=== PATIENT | female | born 1950 | race Caucasian/White ===

== ENCOUNTER 2019-03-09 13:49 | Inpatient (IN) ==
[2019-03-09] MEDS ORDERED: Isovue-370 500 ML BOTTLE IVP ONE (14:01)
[2019-03-09 14:37] LABS: Hematocrit 34.9 % (35.3-44.9); Hemoglobin 11.8 g/dL (11.5-15.4); Mean Corpuscular HGB Conc 33.8 g/dL (31.6-35.5); Mean Corpuscular Hemoglobin 32.1 pg (28.0-33.3); Mean Corpuscular Volume 94.8 fL (83.0-100.0); Mean Platelet Volume 11.3 fL (9.4-12.4); Platelet Count 143 K/mcL (140-400); Red Blood Count 3.68 M/mcL (3.82-4.97); Red Cell Distribution Width 13.8 % (11.5-14.5); White Blood Count 5.4 K/mcL (4.3-11.1)
[2019-03-09 14:46] LABS: INR 1.2; Prothrombin Time 13.4 Seconds (9.4-12.1)
[2019-03-09 14:49] LABS: Activated Partial Thrombo Time 28.2 Seconds (26.0-36.0)
[2019-03-09 14:55] LABS: BUN/Creatinine Ratio 26 (6-26); Blood Urea Nitrogen 35 mg/dL (8-23); Calcium 8.6 mg/dL (8.6-10.3); Carbon Dioxide 25 mEq/L (23-29); Chloride 102 mEq/L (98-107); Glucose 186 mg/dL (70-105); Osmolality,Calculated 291 (280-300); Potassium 4.4 mEq/L (3.5-5.1); Sodium 134 mEq/L (136-145); eGFR For African Americans 47 (> 60); eGFR For Non-African Americans 39 (> 60)
[2019-03-09 14:56] LABS: Troponin I < 0.03 ng/mL (< 0.04)
--- NOTE | 2019-03-09 15:08 | Emergency Department Note ---
Disposition Clinical Impression: Aphasia Disposition: Admitted As Inpatient Condition: Fair Time of Disposition: 15:31 Neuro HPI - General Chief Complaint: ED Neuro Symptoms/Deficit Stated Complaint: neuro sx Time Seen by Provider: 03/09/19 13:53 Source: patient Mode of arrival: ambulatory Limitations: no limitations Nursing Notes Reviewed: Yes Vital Signs Reviewed: Yes - History of Present Illness HPI Narrative: 68-year-old female presented to the emergency department complaining of a facial. said that at 1345 they were at [employer] getting gas when he asked her questions she was unable to answer back. Said this was exactly when it occurred. Said that she does have history of strokes last stroke was a TIA in September. She is on Eloquis secondary atrial fibrillation. She has no other deficits otherwise. Said that she was acting normal otherwise today. Patient otherwise has no other complaints at this time. Although it is difficult to give further history she is completely aphasic at this time. Mostly history came from who is at bedside. - Related Data Home Medications: Home Medications Medication Instructions Recorded Confirmed Apixaban [Eliquis] 5 mg PO BID 10/06/17 03/09/19 DULoxetine [Cymbalta] 30 mg PO DAILY 10/06/17 11/09/17 Ondansetron ODT [Zofran ODT] 4 mg SL Q12HR PRN 10/06/17 11/09/17 Propafenone HCl [Rythmol Sr] 225 mg PO BID 10/06/17 11/09/17 ALPRAZolam [Xanax 0.5 MG Tablet] 0.5 mg PO Q8H PRN 11/09/17 03/09/19 Acetaminophen [Extra Strength 500 mg PO Q4H PRN 11/09/17 03/09/19 Non-Aspirin] Previous Rx's Medication Instructions Recorded Clopidogrel [Plavix] 75 mg PO DAILY tablet 10/12/17 Digoxin [Lanoxin] 0.125 mg PO DAILY tablet 10/25/17 Hydrocodone/Acetaminophen 0.5 each PO Q6H PRN 14 Days #28 10/25/17 [Hydrocodone-Acetamin 7.5-300] tablet Methyl Salicylate/Menth/Camph 113 gm TP BID 365 Days cream..g. 10/25/17 [Bengay Ultra Strength Cream] Lactobacillus [Culturelle] 1 each PO BID 3 Days cap.sprink 11/12/17 levoFLOXacin [Levaquin] 500 mg PO DAILY #3 tablet 11/12/17 Allergies/Adverse Reactions: Allergies Allergy/AdvReac Type Severity Reaction Status Date / Time aspirin AdvReac See Verified 10/06/17 11:51 Comments Limitations: ROS unobtainable due to patients medical condition Past Medical History - Past Medical History Attestation: Yes The following information was validated with the patient. Source: patient Medical history: Reports: arthritis, atrial fibrillation, GERD, hyperlipidemia, hypertension, TIA, other Surgical history: Reports: cholecystectomy, pacemaker Psychiatric history: Reports: depression - Social History Smoking Status: Never smoker Smokeless Tobacco Status: No Alcohol use: Reports: none Drug use: Reports: unknown Physical Exam - General Limitations: no limitations General appearance: alert - Head Head exam: atraumatic, normocephalic, normal inspection - Eye Eye exam: Present: normal appearance, PERRL, EOMI - ENT ENT exam: normal exam, normal oropharynx, mucous membranes moist - Neck Neck exam: Present: normal inspection, full ROM, trachea midline - Chest Chest inspection: Present: normal inspection, symmetric chest wall rise - Respiratory Respiratory exam: Present: normal lung sounds bilaterally. Absent: respiratory distress, accessory muscle use - Cardiovascular Cardiovascular exam: Present: regular rate, normal rhythm, normal heart sounds - Abdominal Exam Abdominal exam: Present: soft, Non-Tender, normal bowel sounds. Absent: tenderness, distention, guarding, rebound, rigidity - Extremities Exam Extremities exam: Present: normal inspection, full ROM. Absent: tenderness, pedal edema - Back Exam Back exam: Present: normal inspection, full ROM. Absent: tenderness, CVA tenderness (R), CVA tenderness (L) - Neurological Exam Neurological exam: Present: alert. Absent: motor sensory deficit - Expanded Neurological Exam Speech: Present: total aphasia Cranial nerves: EOM function (II, III, IV, ): Normal, facial sensation (V): Normal, facial palsy (VII): Normal, spinal accessory function (XI): Normal, tongue deviation (XII): Normal Motor strength - LUE: 4/5 Motor strength - RUE: 4/5 Motor strength - LLE: 4/5 Motor strength - RLE: 4/5 Upper motor neuron exam: margie neglect: Absent bilaterally, pronator drift: Absent bilaterally Sensory exam upper extremity: light touch: Normal Sensory exam lower extremity: light touch: Normal Coma Scale Eye Opening: Spontaneous Coma Scale Motor Response: Obeys Commands Coma Scale Verbal Response: None Coma Scale Total: 11 - Skin Skin exam: Present: warm, dry, intact, normal color Course Vital Signs Temperature 97.5 F L 03/09/19 13:51 Pulse Rate 67 03/09/19 13:51 Respiratory Rate 18 03/09/19 13:51 Blood Pressure 111/62 03/09/19 13:51 O2 Sat by Pulse Oximetry 100 03/09/19 13:51 Temperature 97.5 F L 03/09/19 13:51 Pulse Rate 60 03/09/19 14:56 Respiratory Rate 12 03/09/19 14:56 Blood Pressure 129/71 03/09/19 14:56 O2 Sat by Pulse Oximetry 100 03/09/19 13:51 Oxygen Delivery Oxygen Delivery Room Air Neuro Symptoms/Deficit - MDM Narrative Medical decision making narrative: Patient presented here completely aphasic. Last known well was 1345. At that time she arrives stroke alert was called due to the aphasia I ordered a CT angiogram of the head and neck to be done emergently. Patient is currently on Eliquis. This is secondary to atrial fibrillation. Patient otherwise will had complete motor and sensation intact was able to follow commands is completely aphasic. [facility] neurology did see the patient and recommended against TPA at this time due to her contraindication of being on Eliquis. They recommended CT angiogram of the head and neck for further evaluation for possible thrombectomy. These came back negative for needing thrombectomy. Patient will be admitted to the hospitalist service in stable condition. She was given 1 dose of aspirin here. I spoke with Dr. Simons who agreed to admit the patient to their service. Patient admitted in stable condition Head CT 03/09/19 13:56 IMPRESSION: No acute intracranial hemorrhage is identified. No definite acute intracranial ischemia. Focal area of rectangular shaped low-attenuation within the midbrain may be related to beam hardening artifact. This was discussed with Dr. Wu in the emergency department at 2:25 p.m. on 03/09/2019. Unremarkable CT angiogram without intracranial occlusion or significant stenosis. No aneurysm is seen. D/ / Dejon Lee MD / Dejon Lee MD Interpreting Provider: Dejon Lee MD Head CTA 03/09/19 14:01 IMPRESSION: No acute intracranial hemorrhage is identified. No definite acute intracranial ischemia. Focal area of rectangular shaped low-attenuation within the midbrain may be related to beam hardening artifact. This was discussed with Dr. Wu in the emergency department at 2:25 p.m. on 03/09/2019. Unremarkable CT angiogram without intracranial occlusion or significant stenosis. No aneurysm is seen. D/ / Dejon Lee MD / Dejon Lee MD Interpreting Provider: Dejon Lee MD Neck CTA 03/09/19 14:01 IMPRESSION: No acute intracranial hemorrhage is identified. No definite acute intracranial ischemia. Focal area of rectangular shaped low-attenuation within the midbrain may be related to beam hardening artifact. This was discussed with Dr. Wu in the emergency department at 2:25 p.m. on 03/09/2019. Unremarkable CT angiogram without intracranial occlusion or significant stenosis. No aneurysm is seen. D/ / Dejon Lee MD / Dejon Lee MD Interpreting Provider: Dejon Lee MD - Medical Records Medical records reviewed: Yes I reviewed the patient's medical records. - Lab Data Lab results reviewed: Yes I reviewed the patient's lab results. Result diagrams: 03/09/19 14:30 03/09/19 14:30 Lab Results 03/09/19 03/09/19 03/09/19 Range/Units 14:30 14:30 14:30 WBC 5.4 (4.3-11.1) K/mcL RBC 3.68 L (3.82-4.97) M/mcL Hgb 11.8 (11.5-15.4) g/dL Hct 34.9 L (35.3-44.9) % MCV 94.8 (83.0-100.0) fL MCH 32.1 (28.0-33.3) pg MCHC 33.8 (31.6-35.5) g/dL RDW 13.8 (11.5-14.5) % Plt Count 143 (140-400) K/mcL MPV 11.3 (9.4-12.4) fL PT 13.4 H (9.4-12.1) Seconds INR 1.2 APTT 28.2 (26.0-36.0) Seconds Sodium 134 L (136-145) mEq/L Potassium 4.4 (3.5-5.1) mEq/L Chloride 102 (98-107) mEq/L Carbon Dioxide 25 (23-29) mEq/L BUN 35 H (8-23) mg/dL Creatinine 1.35 H (0.60-1.20) mg/dL Est GFR ( Amer) 47 L (> 60) Est GFR (Non-Af Amer) 39 L (> 60) BUN/Creatinine Ratio 26 (6-26) Glucose 186 H (70-105) mg/dL Calculated Osmolality 291 (280-300) Calcium 8.6 (8.6-10.3) mg/dL Troponin I < 0.03 (< 0.04) ng/mL - Radiology Data Radiology results reviewed: Yes I reviewed the patient's radiology results. - EKG Data EKG attestation: Yes I reviewed and interpreted this EKG. EKG results narrative: EKG done at 1358 review myself and attending shows atrially paced rhythm at a rate of 67, MN interval 166, QRS 134, QTc 458. Is no acute ST changes no acute T-wave changes no other signs of ischemia. No signs of hypertrophy, heart strain, heart block. No WPW/Brugada/HOCM. EKG unchanged when compared with old EKG done 10/06/17 NIH Stroke Scale - Level of Consciousness LOC: Alert - LOC Questions LOC Questions: Answers both incorrectly - LOC Commands LOC Commands: Performs both correctly - Best Gaze Best Gaze: Normal - Visual Visual: No visual loss - Facial Palsy Facial Palsy: Normal - Motor Arms Motor Arm-Left: No drift for 10 seconds Motor Arm-Right: No drift for 10 seconds - Motor Legs Motor Leg-Left: No drift for 5 seconds Motor Leg-Right: No drift for 5 seconds - Limb Ataxia Limb Ataxia: Absent of affected limb too weak to perform exam - Sensory Sensory: Normal - Best Language Best Language: Mute, no usable speech - Dysarthria Dysarthria: Severe, slurred speech unintelligible or mute - Extinction and Inattention Extinction and Inattention: Normal - NIHSS Total Score NIHSS Total Score: 7 TPA Checklist - LKW: 3-4.5 hrs Add. Warnings/Precautions Patient/family understanding: The patient/family members have been counseled and understood the risk, benefit, and alternatives of treatment. Attestation Statement - Attestation Attestation: I, Baljit Wu, examined this patient and my medical decision-making was reviewed with the COMPOSITION STONE APPLICATOR/PA/Advanced Practice Nurse/Resident Physician. I agree with the documented findings, disposition and treatment plan as described except to the extent set forth below. 68-year-old female presents emergency Department with concerns of acute onset aphasia. is present who gives a story regarding the patient's case and presentation. He states that they were sitting in the car when she had acute onset of being unable to speak. Patient has had this happen to her in the past but they were unclear as to the source of what happened. No recent trauma. No changes in medications. This was not a particularly stressful time for the patient. We initiated stroke protocol during the initial evaluation. CT did not show evidence of hemorrhage or obvious area of ischemia or large vessel occlusion. OCD stroke neurology recommended patient was not a TPA candidate secondary to the use of Eliquis for atrial fibrillation. Patient has aspirin listed as an allergy in emergency department however she does not have an allergy. She developed gastric hemorrhage in the distant past after multiple months of combined aspirin and celecoxib. Patient is comfortable with the plan for aspirin today in the emergency department and admission to the hospital for further care and evaluation.
[2019-03-09] MEDS ORDERED: Aspirin 81 MG TAB.CHEW PO ONE (15:13)
[2019-03-09] MEDS ORDERED: Ondansetron ODT 4 MG TAB.RAPDIS SL PRN (16:06)
[2019-03-09] MEDS ORDERED: Naloxone 0.4 MG/ML INJ IVP PRN (16:06)
--- NOTE | 2019-03-09 16:37 | Internal Med History&Physical ---
Date of Encounter: 03/09/19 Time of Encounter: 16:37 Internal Medicine - H&P: HPI Chief complaint: Aphasia Admitted From: Emergency Dept Plans for Post Hospital Care: Home History of present illness: Ms. Willis is a 68 year old female asked medical history of atrial fibrillation on Eliquis GIOVANNA on CPAP chronic back pain hyperlipidemia hypertension previous TIA GERD pacemaker placement-information obtained from was at bedside due to patient's difficulty speaking cording to the they were at [employer] patient was in the car that he was pumping gas that has been asked the patient has question however she was unable to answer back. He states that she did not lose any consciousness there was no facial droop. Apparently she did have TIA symptoms back in September and was diagnosed with atrial fibrillation was placed on Eliquis-she apparently has a PFO as well-she was brought to [facility] ER a CT angiogram of the head and neck was completed emergently head CT with no acute intercranial hemorrhage no definite acute intracranial ischemia focal area of right talar stable low attenuation within the mid brain may be related to being hardening artifact. Unremarkable CTA without any intracranial occlusion or significant stenosis or aneurysm seen. [facility] neurology did see the patient and recommend against TPA at this time due to her contraindication have been on Rolando was Lab work does show NADEGE-rest of lab work was unremarkable. Prior to this episode patient states she has been in her normal state of health. Currently she is hemodynamically stable at this time and has been admitted for further w orkup and evaluation of possible CVA. Patient does express that she would like to be a full code Past Med Surg Social Fam HX - Past Medical History Medical history: arthritis, atrial fibrillation, GERD, hyperlipidemia, hypertension, TIA, other Additional medical history: Parkinson's disease Psychiatric history: depression - Past Surgical History Surgical History: cholecystectomy, pacemaker Additional surgical history: stomach surgery. bilat knees replaced. back surgery. cardiac pacemaker - Social History Smoking Status: Never smoker Smokeless Tobacco Status: No Alcohol use: none Drug use: unknown - Family History Mother Hx Family Cardiac Disorders: Yes (Hypertension) Father Hx Family Cardiac Disorders: Yes (Hypertension) Internal Medicine - H&P: Meds Apixaban [Eliquis] 5 mg PO BID 10/06/17 [History] DULoxetine [Cymbalta] 30 mg PO DAILY 10/06/17 [History] Ondansetron ODT [Zofran ODT] 4 mg SL Q12HR PRN 10/06/17 [History] Propafenone HCl [Rythmol Sr] 225 mg PO BID 10/06/17 [History] Clopidogrel [Plavix] 75 mg PO DAILY tablet 10/12/17 [Rx] Digoxin [Lanoxin] 0.125 mg PO DAILY tablet 10/25/17 [Rx] Hydrocodone/Acetaminophen [Hydrocodone-Acetamin 7.5-300] 0.5 each PO Q6H PRN 14 Days #28 tablet 10/25/17 [Rx] Methyl Salicylate/Menth/Camph [Bengay Ultra Strength Cream] 113 gm TP BID 365 Days cream..g. 10/25/17 [Rx] ALPRAZolam [Xanax 0.5 MG Tablet] 0.5 mg PO Q8H PRN 11/09/17 [History] Acetaminophen [Extra Strength Non-Aspirin] 500 mg PO Q4H PRN 11/09/17 [History] Lactobacillus [Culturelle] 1 each PO BID 3 Days cap.sprink 11/12/17 [Rx] levoFLOXacin [Levaquin] 500 mg PO DAILY #3 tablet 11/12/17 [Rx] Allergy/AdvReac Type Severity Reaction Status Date / Time No Known Allergies Allergy Verified 03/09/19 16:32 All Systems PM: A 10-system review of systems was performed and is negative for pertinent findings except as documented above in the HPI. - Constitutional Constitutional: no chills, no fever(s), no night sweats - EENT Eyes: no change in vision, no discharge, no pain, no photophobia Ears: no ear discharge, no ear pain, no tinnitus Nose, mouth and throat: no dysphagia, no nasal discharge, no neck pain, no sore throat - Cardiovascular Cardiovascular ROS IM: no chest pain, no diaphoresis, no dyspnea, no lighthead edness, no palpitations, no syncope - Respiratory Respiratory: no cough, no dyspnea, no wheezing, no excessive phlegm production - Gastrointestinal Gastrointestinal: no abdominal pain, no diarrhea, no hematemesis, no hemat ochezia, no melena, no nausea, no vomiting - Genitourinary Genitourinary: no change in urinary stream, no dysuria, no flank pain, no hematuria - Musculoskeletal Musculoskeletal ROS IM: no numbness, no tingling - Integumentary Integumentary IM: no rash, no unusual bruising - Neurological Neurological ROS: no confusion, no convulsions, no focal weakness, no numbness, no tingling, no tremor(s) - Hematologic/Lymphatic Hematologic/Lymphatic: no easy bruising - Constitutional Vitals: Temp Pulse Resp BP Pulse Ox 97.5 F L 60 12 129/71 100 03/09/19 13:51 03/09/19 14:56 03/09/19 14:56 03/09/19 14:56 03/09/19 13:51 General appearance: Present: A&O X 3, morbidly obese Exam: . - Head Head exam: Present: atraumatic, normocephalic - Eye Eye exam: Present: PERRL, conjuntiva pink, sclera anicteric Pupils: Present: PERRL - Neck Neck exam general surgery: Present: supple, trachea midline. Absent: lymphadenopathy - Respiratory Respiratory exam: Present: CTAB. Absent: accessory muscle use, rales, rhonchi, wheezes - Cardiovascular Cardiovascular exam: Present: RRR, +S1, +S2. Absent: diastolic murmur, gallop, rubs, systolic murmur - GI/Abdominal GI/Abdominal exam: Present: normal bowel sounds, soft, no peritoneal signs. Absent: distended, tenderness - Extremities Exam Extremities exam: Present: warm, radial pulses palpable and symmetrical. Absent: calf tenderness, cyanotic, pedal edema - Neurological Exam Neurological exam: Present: CN II-XII intact, oriented X3, no focal deficits, speech deficit. Absent: pronater drift, facial droop Additional comments: Patient is able to answer questions however her speech is broken. - Skin Skin exam: Present: dry, intact Internal Med - H&P Results - Labs CBC & Chem 7: 03/09/19 14:30 03/09/19 14:30 Labs: Short CBC 03/09/19 Range/Units 14:30 WBC 5.4 (4.3-11.1) K/mcL Hgb 11.8 (11.5-15.4) g/dL Hct 34.9 L (35.3-44.9) % Plt Count 143 (140-400) K/mcL BMP 03/09/19 14:30 Sodium 134 L Potassium 4.4 Chloride 102 Carbon Dioxide 25 BUN 35 H Creatinine 1.35 H Glucose 186 H Calcium 8.6 Cardiac Enzymes 03/09/19 Range/Units 14:30 Troponin I < 0.03 (< 0.04) ng/mL - Impressions ITS Impressions Head CT 03/09/19 13:56 IMPRESSION: No acute intracranial hemorrhage is identified. No definite acute intracranial ischemia. Focal area of rectangular shaped low-attenuation within the midbrain may be related to beam hardening artifact. This was discussed with Dr. Wu in the emergency department at 2:25 p.m. on 03/09/2019. Unremarkable CT angiogram without intracranial occlusion or significant stenosis. No aneurysm is seen. D/ / Dejon Lee MD / Dejon Lee MD Interpreting Provider: Dejon Lee MD Head CTA 03/09/19 14:01 IMPRESSION: No acute intracranial hemorrhage is identified. No definite acute intracranial ischemia. Focal area of rectangular shaped low-attenuation within the midbrain may be related to beam hardening artifact. This was discussed with Dr. Wu in the emergency department at 2:25 p.m. on 03/09/2019. Unremarkable CT angiogram without intracranial occlusion or significant stenosis. No aneurysm is seen. D/ / Dejon Lee MD / Dejon Lee MD Interpreting Provider: Dejon Lee MD Neck CTA 03/09/19 14:01 IMPRESSION: No acute intracranial hemorrhage is identified. No definite acute intracranial ischemia. Focal area of rectangular shaped low-attenuation within the midbrain may be related to beam hardening artifact. This was discussed with Dr. Wu in the emergency department at 2:25 p.m. on 03/09/2019. Unremarkable CT angiogram without intracranial occlusion or significant stenosis. No aneurysm is seen. D/ / Dejon Lee MD / Dejon Lee MD Interpreting Provider: Dejon Lee MD - Diagnostic Studies Chest x-ray Additional comments: Head CT 03/09/19 13:56 IMPRESSION: No acute intracranial hemorrhage is identified. No definite acute intracranial ischemia. Focal area of rectangular shaped low-attenuation within the midbrain may be related to beam hardening artifact. This was discussed with Dr. Wu in the emergency department at 2:25 p.m. on 03/09/2019. Unremarkable CT angiogram without intracranial occlusion or significant stenosis. No aneurysm is seen. D/ / Dejon Lee MD / Dejon Lee MD Interpreting Provider: Dejon Lee MD Head CTA 03/09/19 14:01 IMPRESSION: No acute intracranial hemorrhage is identified. No definite acute intracranial ischemia. Focal area of rectangular shaped low-attenuation within the midbrain may be related to beam hardening artifact. This was discussed with Dr. Wu in the emergency department at 2:25 p.m. on 03/09/2019. Unremarkable CT angiogram without intracranial occlusion or significant stenosis. No aneurysm is seen. D/ / Dejon Lee MD / Dejon Lee MD Interpreting Provider: Dejon Lee MD Neck CTA 03/09/19 14:01 IMPRESSION: No acute intracranial hemorrhage is identified. No definite acute intracranial ischemia. Focal area of rectangular shaped low-attenuation within the midbrain may be related to beam hardening artifact. This was discussed with Dr. Wu in the emergency department at 2:25 p.m. on 03/09/2019. Unremarkable CT angiogram without intracranial occlusion or significant stenosis. No aneurysm is seen. D/ / Dejon Lee MD / Dejon Lee MD Interpreting Provider: Dejon Lee MD - Assessment and Plan (1) Aphasia Current Visit: Yes Status: Acute Assessment and plan: Patient presented after sudden onset of aphasia. Initially she was unable to sp eak now she can answer with broken sentences. Patient states that this happened before approximately September at that time the symptoms lasted an hour and then resolved. She does have a history of atrial fibrillation also states that she has a PFO currently on anticoagulation. She was given aspirin in the ER which we will continue We will obtain cardiac echo Continuous cardiac monitoring NIHSS We will consult neurology Lipid profile Continuous statin We will obtain MRI-patient has [employer] pacemaker we will contact [employer] (2) NADEGE (acute kidney injury) Current Visit: Yes Status: Acute Assessment and plan: Patient's creatinine is elevated at 1.35 looks at her baseline is around 1 to less than 1-GFR is 39. She is around 50 to greater than 60 baseline We will give some gentle IV fluids Recheck creatinine in the a.m. Avoid nephrotoxins (3) DVT prophylaxis Current Visit: Yes Status: Acute Assessment and plan: 1 on Eliquis (4) TIA (transient ischemic attack) Current Visit: No Status: Chronic Assessment and plan: Per history Qualifiers: Transient cerebral ischemia type: unspecified Qualified Code(s): G45.9 - Transient cerebral ischemic attack, unspecified (5) Atrial fibrillation Current Visit: No Status: Chronic Assessment and plan: History of atrial fibrillation currently atrial paced paced-rate controlled we will continue with Eliquis Rythmol and digoxin once clarified Qualifiers: Atrial fibrillation type: chronic Qualified Code(s): I48.2 - Chronic atrial fibrillation (6) Hypertension Current Visit: No Status: Chronic Assessment and plan: Continue with home medications once verified Qualifiers: Hypertension type: essential hypertension Qualified Code(s): I10 - Essential (primary) hypertension - Time Spent With Patient Total time spent is greater than 50% in coordination of care (as documented) at patient's floor/unit and/or counseling patient:
[2019-03-09] MEDS ORDERED: 0.9 % Sodium Chloride 1,000 ML IVC SCH (17:30)
[2019-03-09] MEDS: *HR* HYDROcodone/Acet 5/325 mg TABLET PO PRN (18:15)
[2019-03-09] MEDS: Apixaban 5 MG TABLET PO SCH (21:20)
[2019-03-09] MEDS: Acetaminophen 325 MG TABLET PO PRN (21:23)
[2019-03-10] MEDS: *HR* HYDROcodone/Acet 5/325 mg TABLET PO PRN ×4 (03:46→23:08)
[2019-03-10 07:36] LABS: Basophils % 0.5 %; Eosinophils # 0.4 K/mcL (0.0-0.6); Eosinophils % 6.3 %; Hematocrit 33.7 % (35.3-44.9); Hemoglobin 11.5 g/dL (11.5-15.4); Immature Granulocytes % 0.3 % (0-4); Lymphocytes # 2.6 K/mcL (0.6-4.6); Lymphocytes % 43.1 %; Mean Corpuscular HGB Conc 34.1 g/dL (31.6-35.5); Mean Corpuscular Hemoglobin 32.3 pg (28.0-33.3); Mean Corpuscular Volume 94.7 fL (83.0-100.0); Mean Platelet Volume 11.1 fL (9.4-12.4); Monocytes # 0.4 K/mcL (0.0-1.3); Monocytes % 6.6 %; Neutrophils # 2.6 K/mcL (1.6-8.9); Platelet Count 139 K/mcL (140-400); Red Blood Count 3.56 M/mcL (3.82-4.97); Red Cell Distribution Width 13.6 % (11.5-14.5); Segmented Neutrophils % 43.2 %; White Blood Count 5.9 K/mcL (4.3-11.1)
[2019-03-10 07:58] LABS: Calcium 8.7 mg/dL (8.6-10.3); Chol/HDL Ratio 3.4 (0-4.9); Magnesium 2.1 mg/dL (1.6-2.6)
[2019-03-10] MEDS ORDERED: Perflutren Lipid Microsphere 1.3 ML in 0.9 % Sodium Chloride 8.7 ML IVP ONE (09:02)
--- NOTE | 2019-03-10 09:57 | Neurology - Consult Note ---
Date of Encounter: 03/10/19 Time of Encounter: 09:53 Assessment and Plan (1) Aphasia Current Visit: Yes Status: Acute Etiology unclear at this juncture; consider CVA vs TIA W/U pending includes MRI of the rain, TTE, and Carotid duplex scan Seizure also in the differential; will get EEG as well In the meantime c/w neuro assessments per protocol C/w ASA, Eliquis and Lipitor Further recommendations pending w/u completion History of Present Illness Chief complaint: expressive aphasia HPI: Ms. Willis is a 68 year old female Past Med Surg Social Fam HX - Past Medical History Medical history: arthritis, atrial fibrillation, GERD, hyperlipidemia, hypertension, TIA, other Additional medical history: Parkinson's disease Psychiatric history: depression - Past Surgical History Surgical History: cholecystectomy Additional surgical history: stomach surgery. bilat knees replaced. back surgery. cardiac pacemaker - Social History Smoking Status: Never smoker Smokeless Tobacco Status: No Alcohol use: none Drug use: unknown - Family History Mother Cause of : brain aneurysm Hx Family Cardiac Disorders: Yes Hx Family Endocrine Disorder: Yes Father Living Status: Cause of : abdominal aneurysm Hx Family Cardiac Disorders: Yes (Hypertension) Medications and Allergies Apixaban [Eliquis] 5 mg PO BID 10/06/17 [History] DULoxetine [Cymbalta] 30 mg PO DAILY 10/06/17 [History] Ondansetron ODT [Zofran ODT] 4 mg SL Q12HR PRN 10/06/17 [History] Propafenone HCl [Rythmol Sr] 225 mg PO BID 10/06/17 [History] Clopidogrel [Plavix] 75 mg PO DAILY tablet 10/12/17 [Rx] Digoxin [Lanoxin] 0.125 mg PO DAILY tablet 10/25/17 [Rx] Hydrocodone/Acetaminophen [Hydrocodone-Acetamin 7.5-300] 0.5 each PO Q6H PRN 14 Days #28 tablet 10/25/17 [Rx] Methyl Salicylate/Menth/Camph [Bengay Ultra Strength Cream] 113 gm TP BID 365 Days cream..g. 10/25/17 [Rx] ALPRAZolam [Xanax 0.5 MG Tablet] 0.5 mg PO Q8H PRN 11/09/17 [History] Acetaminophen [Extra Strength Non-Aspirin] 500 mg PO Q4H PRN 11/09/17 [History] Lactobacillus [Culturelle] 1 each PO BID 3 Days cap.sprink 11/12/17 [Rx] levoFLOXacin [Levaquin] 500 mg PO DAILY #3 tablet 11/12/17 [Rx] Alendronate Sodium 70 mg PO Q1W 03/10/19 [History] Allopurinol [Zyloprim 100 MG] 100 mg PO DAILY 03/10/19 [History] Buspar 7.5 mg PO BID 03/10/19 [History] Cyclobenzaprine [Flexeril] 10 mg PO TID 03/10/19 [History] Dicyclomine [Bentyl] 10 mg PO QID 03/10/19 [History] Furosemide [Lasix] 40 mg PO DAILY 03/10/19 [History] Gabapentin [Neurontin] 100 mg PO BID 03/10/19 [History] Isosorbide Mononitrate 30 mg PO DAILY 03/10/19 [History] Metoprolol Tartrate 50 mg PO BID 03/10/19 [History] Potassium Chloride [Klor-Con] 20 meq PO BID 03/10/19 [History] hydrALAZINE [HydrALAZINE] 10 mg PO BID 03/10/19 [History] Allergy/AdvReac Type Severity Reaction Status Date / Time No Known Allergies Allergy Verified 03/09/19 16:32 All Systems: The remainder of the systems were reviewed and are negative Review of Systems: REVIEW OF SYSTEMS NEUROLOGIC: Negative for any blurry vision, blind spots, double vision, facial asymmetry, dysphagia, dysarthria, hemiparesis, hemisensory deficits, vertigo, ataxia, seizures, paralysis, tingling, numbness, unilateral weakness or numbness/tingling POSITIVE-expressive aphasia lasting approximately 6 hours, also, reporting confusion amnesia with a loss of approximately 2.5 hours yesterday MUSCULOSKELETAL: Negative - loss of strength Physical Examination - Vital Signs Vital Signs: Initial Vital Signs Temp Pulse Resp BP Pulse Ox 97.5 F L 67 18 111/62 100 03/09/19 13:51 03/09/19 13:51 03/09/19 13:51 03/09/19 13:51 03/09/19 13:51 Results - Laboratory Findings CBC and BMP: 03/10/19 06:43 03/10/19 06:43 Abnormal lab findings: Abnormal lab results RBC 3.56 M/mcL (3.82-4.97) L 03/10/19 06:43 Hct 33.7 % (35.3-44.9) L 03/10/19 06:43 Plt Count 139 K/mcL (140-400) L 03/10/19 06:43 PT 13.4 Seconds (9.4-12.1) H 03/09/19 14:30 Sodium 134 mEq/L (136-145) L 03/09/19 14:30 BUN 29 mg/dL (8-23) H 03/10/19 06:43 Creatinine 1.35 mg/dL (0.60-1.20) H 03/09/19 14:30 Est GFR ( Amer) 55 (> 60) L 03/10/19 06:43 Est GFR (Non-Af Amer) 45 (> 60) L 03/10/19 06:43 Glucose 108 mg/dL (70-105) H 03/10/19 06:43 POC Glucose 146 mg/dL (70-99) H 03/09/19 13:55 LDL Cholesterol, Calc 103 mg/dL (0-99) H 03/10/19 06:43 - Diagnostic Findings Additional findings: CT/CT angio neck IMPRESSION: No acute intracranial hemorrhage is identified. No definite acute intracranial ischemia. Focal area of rectangular shaped low-attenuation within the midbrain may be related to beam hardening artifact. This was discussed with Dr. Wu in the emergency department at 2:25 p.m. on 03/09/2019. Unremarkable CT angiogram without intracranial occlusion or significant stenosis. No aneurysm is seen. Consult Discharge Plan - Plan Referrals: Courtney Cadet DO [Primary Care Provider] -
[2019-03-10] MEDS: Apixaban 5 MG TABLET PO SCH ×2 (10:45→20:29)
[2019-03-10] MEDS: Aspirin 81 MG TAB.CHEW PO SCH (10:46)
[2019-03-10] MEDS: Furosemide 40 MG TABLET PO SCH (10:46)
[2019-03-10] MEDS: Gabapentin 100 MG CAPSULE PO SCH ×2 (10:46→20:29)
[2019-03-10] MEDS: hydrALAZINE 10 MG TABLET PO SCH ×2 (10:46→20:29)
[2019-03-10] MEDS: Isosorbide MONOnitrate (24 HR) 30 MG TAB.ER.24H PO SCH (10:47)
--- NOTE | 2019-03-10 12:03 | Internal Med Progress Note ---
Hospitalist Progress Note - Encounter Date of Encounter: 03/10/19 Time of Encounter: 11:56 - Subjective Interval History: Patient was seen and examined at bedside. Currently speech seems to be much improved more fluid. We are waiting MRI which will be completed around 1:00 this afternoon. Discussed treatment plan with the patient who verbalizes unders tanding. - Exam Vitals: Temp Pulse Resp BP Pulse Ox 97.7 F 63 16 114/77 93 03/10/19 10:56 03/10/19 10:56 03/10/19 10:56 03/10/19 10:56 03/10/19 11:02 Exam: Skin: Free of rash and discoloration. Eyes: Sclera is white. There is no discharge from eyes. ENMT: Oral/pharyngeal mucosa is normal in appearance. There is no discharge from nose or ears. Respiratory: Normal breath sounds with no crackles and wheezes bilaterally. CV: Heart is regular with no gallop or murmur. GI: Abdomen is flat and soft with no palpable mass or visceromegaly. : There is no tenderness in patient's flanks bilaterally. Neuro exam: He has good strength in upper and lower extremities. He has normal eye movements. Psychiatric: He has normal affect. His thought process is appropriate to the situation. . - Assessment and Plan (1) Aphasia Current Visit: Yes Status: Acute Assessment and Plan: Patient presented after sudden onset of aphasia. Initially she was unable to speak now she can answer with broken sentences. Patient states that this happened before approximately September at that time the symptoms lasted an hour and then resolved. She does have a history of atrial fibrillation also states that she has a PFO currently on anticoagulation. She was given aspirin in the ER which we will continue We will obtain cardiac echo Continuous cardiac monitoring NIHSS We will consult neurology Lipid profile Continuous statin We will obtain MRI-patient has [employer] pacemaker we will contact [employer] 03/10 Speech is more fluid at this time Continuous cardiac monitoring EKG with atrial paced rhythm Neurology has been consulted appreciate recommendations Aspirin and statin A stat MRI today at 1:00 Carotid duplex and echo are pending at this time (2) NADEGE (acute kidney injury) Current Visit: Yes Status: Acute Assessment and Plan: Patient's creatinine is elevated at 1.35 looks at her baseline is around 1 to less than 1-GFR is 39. She is around 50 to greater than 60 baseline We will give some gentle IV fluids Recheck creatinine in the a.m. Avoid nephrotoxins 03/10 This has improved after receiving IV fluids we will avoid nephrotoxins continue to monitor (3) DVT prophylaxis Current Visit: Yes Status: Acute Assessment and Plan: 1 on Eliquis (4) TIA (transient ischemic attack) Current Visit: No Status: Chronic Assessment and Plan: Per history (5) Atrial fibrillation Current Visit: No Status: Chronic Assessment and Plan: History of atrial fibrillation currently atrial paced paced-rate controlled we will continue with Eliquis Rythmol and digoxin once clarified 03/10 History of atrial fibrillation with pacemaker placement-occasions have been clarified continue with home Eliquis as well as metoprolol (6) Hypertension Current Visit: No Status: Chronic Assessment and Plan: Continue with home medications once verified - Time Spent with Patient Total time spent is greater than 50% in coordination of care (as documented) at patient's floor/unit and/or counseling patient: Internal Medicine: Result - Labs CBC & Chem 7: 03/10/19 06:43 03/10/19 06:43 Labs: Short CBC 03/09/19 03/10/19 Range/Units 14:30 06:43 WBC 5.4 5.9 (4.3-11.1) K/mcL Hgb 11.8 11.5 (11.5-15.4) g/dL Hct 34.9 L 33.7 L (35.3-44.9) % Plt Count 143 139 L (140-400) K/mcL Neutrophils # 2.6 (1.6-8.9) K/mcL BMP 03/09/19 03/10/19 14:30 06:43 Sodium 134 L 139 Potassium 4.4 4.0 Chloride 102 105 Carbon Dioxide 25 25 BUN 35 H 29 H Creatinine 1.35 H 1.19 Glucose 186 H 108 H Calcium 8.6 8.7 Cardiac Enzymes 03/09/19 Range/Units 14:30 Troponin I < 0.03 (< 0.04) ng/mL - ABG Interpretation ABG results: PT/INR, D-dimer PT 13.4 Seconds (9.4-12.1) H 03/09/19 14:30 - Impressions Impressions Head CT 03/09/19 13:56 IMPRESSION: No acute intracranial hemorrhage is identified. No definite acute intracranial ischemia. Focal area of rectangular shaped low-attenuation within the midbrain may be related to beam hardening artifact. This was discussed with Dr. Wu in the emergency department at 2:25 p.m. on 03/09/2019. Unremarkable CT angiogram without intracranial occlusion or significant stenosis. No aneurysm is seen. D/ / Dejon Lee MD / Dejon Lee MD Interpreting Provider: Dejon Lee MD Head CTA 03/09/19 14:01 IMPRESSION: No acute intracranial hemorrhage is identified. No definite acute intracranial ischemia. Focal area of rectangular shaped low-attenuation within the midbrain may be related to beam hardening artifact. This was discussed with Dr. Wu in the emergency department at 2:25 p.m. on 03/09/2019. Unremarkable CT angiogram without intracranial occlusion or significant stenosis. No aneurysm is seen. D/ / Dejon Lee MD / Dejon Lee MD Interpreting Provider: Dejon Lee MD Neck CTA 03/09/19 14:01 IMPRESSION: No acute intracranial hemorrhage is identified. No definite acute intracranial ischemia. Focal area of rectangular shaped low-attenuation within the midbrain may be related to beam hardening artifact. This was discussed with Dr. Wu in the emergency department at 2:25 p.m. on 03/09/2019. Unremarkable CT angiogram without intracranial occlusion or significant stenosis. No aneurysm is seen. D/ / Dejon Lee MD / Dejon Lee MD Interpreting Provider: Dejon Lee MD Consult Discharge Plan - Plan Referrals: Courtney Cadet DO [Primary Care Provider] - (4) TIA (transient ischemic attack) Qualifiers: Transient cerebral ischemia type: unspecified Qualified Code(s): G45.9 - Transient cerebral ischemic attack, unspecified (5) Atrial fibrillation Qualifiers: Atrial fibrillation type: chronic Qualified Code(s): I48.2 - Chronic atrial fibrillation (6) Hypertension Qualifiers: Hypertension type: essential hypertension Qualified Code(s): I10 - Essential (primary) hypertension
[2019-03-10] MEDS: Acetaminophen 325 MG TABLET PO PRN ×2 (12:39→20:33)
--- NOTE | 2019-03-10 13:45 | Neurology - Consult Note ---
<Norberto Rose J - Last Filed: 03/10/19 14:33> Date of Encounter: 03/10/19 Time of Encounter: 14:00 Assessment and Plan (1) Aphasia Current Visit: Yes Status: Acute Etiology unclear at this juncture; consider CVA vs TIA suspect most likely CVA in left temporal lobe W/U pending includes MRI of the brain, TTE, and Carotid duplex scan Seizure also in the differential; will get EEG as well In the meantime c/w neuro assessments per protocol C/w ASA, Eliquis and Lipitor Further recommendations pending w/u completion History of Present Illness Chief complaint: cva r/o HPI: Ms. Willis is a 68 year old female with a PMH of A-fib (on Eliquis) GIOVANNA (on CPAP) HLD, HTN, pacemaker and previous TIA. She presents with a CC of expressive aphasia, confusion and memory loss. Her states that they were at [employer] getting gas when she developed a sudden onset of confusion and expressive aphasia. He reports that he attempted to speak to her but she was unable to respond. She denies any facial droop, dysphagia, visual disturbances, or motor symptoms. An [facility] stroke alert was called but TPA was not recommended d/t use of Eliquis. She notes a recent TIA in Sep 2018. That workup reveal a new dx of A- fib and she has been on Eliquis since. Currently she is back to baseline and there are no speech difficulties. Additionally, there are no focal findings on exam. Neurology following to provide further recommendations. CVA w/u pending completion CTA head was negative for intracranial hemorrhage, and/or definite acute ischemia, no flow limiting stenosis seen. Past Med Surg Social Fam HX - Past Medical History Medical history: arthritis, atrial fibrillation, GERD, hyperlipidemia, hypertension, TIA, other Additional medical history: Parkinson's disease Psychiatric history: depression - Past Surgical History Surgical History: cholecystectomy Additional surgical history: stomach surgery. bilat knees replaced. back surgery. cardiac pacemaker - Social History Smoking Status: Never smoker Smokeless Tobacco Status: No Alcohol use: none Drug use: unknown - Family History Mother Cause of : brain aneurysm Hx Family Cardiac Disorders: Yes Hx Family Endocrine Disorder: Yes Father Living Status: Cause of : abdominal aneurysm Medications and Allergies Apixaban [Eliquis] 5 mg PO BID 10/06/17 [History] DULoxetine [Cymbalta] 30 mg PO DAILY 10/06/17 [History] Ondansetron ODT [Zofran ODT] 4 mg SL Q12HR PRN 10/06/17 [History] Propafenone HCl [Rythmol Sr] 225 mg PO BID 10/06/17 [History] Clopidogrel [Plavix] 75 mg PO DAILY tablet 10/12/17 [Rx] Digoxin [Lanoxin] 0.125 mg PO DAILY tablet 10/25/17 [Rx] Hydrocodone/Acetaminophen [Hydrocodone-Acetamin 7.5-300] 0.5 each PO Q6H PRN 14 Days #28 tablet 10/25/17 [Rx] Methyl Salicylate/Menth/Camph [Bengay Ultra Strength Cream] 113 gm TP BID 365 Days cream..g. 10/25/17 [Rx] ALPRAZolam [Xanax 0.5 MG Tablet] 0.5 mg PO Q8H PRN 11/09/17 [History] Acetaminophen [Extra Strength Non-Aspirin] 500 mg PO Q4H PRN 11/09/17 [History] Lactobacillus [Culturelle] 1 each PO BID 3 Days cap.sprink 11/12/17 [Rx] levoFLOXacin [Levaquin] 500 mg PO DAILY #3 tablet 11/12/17 [Rx] Alendronate Sodium 70 mg PO Q1W 03/10/19 [History] Allopurinol [Zyloprim 100 MG] 100 mg PO DAILY 03/10/19 [History] Buspar 7.5 mg PO BID 03/10/19 [History] Cyclobenzaprine [Flexeril] 10 mg PO TID 03/10/19 [History] Dicyclomine [Bentyl] 10 mg PO QID 03/10/19 [History] Furosemide [Lasix] 40 mg PO DAILY 03/10/19 [History] Gabapentin [Neurontin] 100 mg PO BID 03/10/19 [History] Isosorbide Mononitrate 30 mg PO DAILY 03/10/19 [History] Metoprolol Tartrate 50 mg PO BID 03/10/19 [History] Potassium Chloride [Klor-Con] 20 meq PO BID 03/10/19 [History] hydrALAZINE [HydrALAZINE] 10 mg PO BID 03/10/19 [History] Allergy/AdvReac Type Severity Reaction Status Date / Time No Known Allergies Allergy Verified 03/09/19 16:32 All Systems: The remainder of the systems were reviewed and are negative Physical Examination - Vital Signs Vital Signs: Initial Vital Signs Temp Pulse Resp BP Pulse Ox 97.5 F L 67 18 111/62 100 03/09/19 13:51 03/09/19 13:51 03/09/19 13:51 03/09/19 13:51 03/09/19 13:51 Results - Laboratory Findings CBC and BMP: 03/10/19 06:43 03/10/19 06:43 Abnormal lab findings: Abnormal lab results RBC 3.56 M/mcL (3.82-4.97) L 03/10/19 06:43 Hct 33.7 % (35.3-44.9) L 03/10/19 06:43 Plt Count 139 K/mcL (140-400) L 03/10/19 06:43 PT 13.4 Seconds (9.4-12.1) H 03/09/19 14:30 Sodium 134 mEq/L (136-145) L 03/09/19 14:30 BUN 29 mg/dL (8-23) H 03/10/19 06:43 Creatinine 1.35 mg/dL (0.60-1.20) H 03/09/19 14:30 Est GFR ( Amer) 55 (> 60) L 03/10/19 06:43 Est GFR (Non-Af Amer) 45 (> 60) L 03/10/19 06:43 Glucose 108 mg/dL (70-105) H 03/10/19 06:43 POC Glucose 146 mg/dL (70-99) H 03/09/19 13:55 LDL Cholesterol, Calc 103 mg/dL (0-99) H 03/10/19 06:43 Consult Discharge Plan - Plan Referrals: Courtney Cadet DO [Primary Care Provider] - <Guevara Mcnulty - Last Filed: 03/10/19 17:57> Date of Encounter: 03/10/19 Assessment and Plan (1) Aphasia Current Visit: Yes Status: Acute MRI scan of the brain does not fact reveal an acute infarct in the left temporal lobe region. Patient does have a history of atrial fibrillation and was on Eliquis It appears as though she is an Eliquis failure. TTE reveals atypical septal motion however no evidence of PFO. I agree with moving on to a HAI. I would also consider another choice for long-term anticoagulation. I will reevaluate her tomorrow. History of Present Illness HPI: Chart was reviewed, the patient was seen and examined independently. Case was discussed with the MAILROOM ASSISTANT. I agree with the history of the history of present illness as documented above. All Systems: The remainder of the systems were reviewed and are negative Review of Systems: The balance of the systems review is negative. Physical Examination - Vital Signs Vital Signs: Initial Vital Signs Temp Pulse Resp BP Pulse Ox 97.5 F L 67 18 111/62 100 03/09/19 13:51 03/09/19 13:51 03/09/19 13:51 03/09/19 13:51 03/09/19 13:51 - Exam Exam: General Examination: *CONSTITUTIONAL: normal *GENERAL APPEARANCE OF PATIENT appears healthy and well groomed *EYES: pupils equal, round, reactive to light and accommodation, conjunctiva clear without masses or ulcerations, fundi normal. *CARDIOVASCULAR no peripheral edema, distal temperature normal, dorsalis pedis pulses normal. Refer to vital signs Musculoskeletal: *GAIT AND STATION normal, with normal Romberg testing, no abnormalities such as broad base gait or spasticity *ASSESSMENT OF MUSCLE STRENGTH IN THE UPPER AND LOWER EXTREMITIES deltoid, bicep, tricep, security administrator strength, hip flexors ,anterior tibialis, dorsoflexion of the foot normal. *MUSCLE TONE IN THE UPPER AND LOWER EXTREMITIES normal. No abnormal movements, fasciculations or atrophy identified. Neurological: *ORIENTATION to time and place *RECURRENT AND REMOTE MEMORY intact *ATTENTION AND CONCENTRATION are normal *LANGUAGE FUNCTION mild expressive dysphasia. No dysarthia was noted. *FUND OF KNOWLEDGE aware of current events, past history, vocabulary *MENTAL attention span and concentration normal. *CN II optic fundi were normal, no papilledema noted. *CN III,IV, PERRLA extraocular eye movements were full, no nystagmus and no ptosis noted. *CN V shows normal sensation and jaw opens symmetrically. *CN VII shows normal facial movement symmetrically, upper and lower bilaterally. *CN VIII shows no significant hearing loss on examination in the office. *CN IX,,X palate elevated symmetrically and normal gag reflex was noted. *CN XI normal strength in the sternocleidomastoid muscles, symmetrical shoulder shrugging. *CN XII tongue protruded in the midline, with normal strength and movement. *SENSORY EXAMINATION pinprick sensation intact, and light touch(vibration sense). *REFLEXES: deep tendon reflexes were normal and symmetrical , grade 1/4 diffusely, no pathological reflexes were noted. *CEREBELLAR TESTING normal finger to nose, heel/knee/cage. *PAIN LEVEL Results - Laboratory Findings CBC and BMP: 03/10/19 06:43 03/10/19 06:43 Abnormal lab findings: Abnormal lab results RBC 3.56 M/mcL (3.82-4.97) L 03/10/19 06:43 Hct 33.7 % (35.3-44.9) L 03/10/19 06:43 Plt Count 139 K/mcL (140-400) L 03/10/19 06:43 PT 13.4 Seconds (9.4-12.1) H 03/09/19 14:30 Sodium 134 mEq/L (136-145) L 03/09/19 14:30 BUN 29 mg/dL (8-23) H 03/10/19 06:43 Creatinine 1.35 mg/dL (0.60-1.20) H 03/09/19 14:30 Est GFR ( Amer) 55 (> 60) L 03/10/19 06:43 Est GFR (Non-Af Amer) 45 (> 60) L 03/10/19 06:43 Glucose 108 mg/dL (70-105) H 03/10/19 06:43 POC Glucose 146 mg/dL (70-99) H 03/09/19 13:55 LDL Cholesterol, Calc 103 mg/dL (0-99) H 03/10/19 06:43
--- NOTE | 2019-03-10 14:09 | Electrocardiograph Report ---
[facility] Test Date: 2019-03-09 Pat Name: Libia Willis Department: [id number] Room: 3B36 Gender: F Pole Cutter: : 1950 Requested By: Tye Lundy Order Number: [id number] Reading MD: Oliver Noyola Measurements Intervals [place] Rate: 67 P: [place]: 166 QRS: -31 QRSD: 134 T: 30 QT: 433 QTc: 458 Interpretive Statements Atrial-paced rhythm Electronically Signed On 03-10-2019 14:08:31 EDT by Oliver Noyola
--- NOTE | 2019-03-10 15:21 | Event Note ---
Date of Encounter: 03/10/19 Time of Encounter: 14:35 MRI positive for acute CVA involving the anterior portion of the left temporal lobe -also incidental adjacent small calcified meningioma measuring 1.3cm correlates clinically with episode of expressive aphasia With A-fib and acute CVA in the left temporal lobe I am concerned for embolic etiology TTE today reveals- atypical septal motion consistent with paced rhythm, mild AR, No PFO found -Recommending HAI with risk for embolic source especially in the setting of failed therapy -consider warfarin or another anticoagulant given failed therapy -further recommendations pending evaluation by Dr. Mcnulty
[2019-03-11] MEDS: Gabapentin 100 MG CAPSULE PO SCH ×2 (09:03→21:19)
[2019-03-11] MEDS: Isosorbide MONOnitrate (24 HR) 30 MG TAB.ER.24H PO SCH (09:03)
[2019-03-11] MEDS: Furosemide 40 MG TABLET PO SCH (09:04)
[2019-03-11] MEDS: Aspirin 81 MG TAB.CHEW PO SCH (09:04)
[2019-03-11] MEDS: Apixaban 5 MG TABLET PO SCH ×2 (09:04→21:19)
[2019-03-11] MEDS: hydrALAZINE 10 MG TABLET PO SCH ×2 (09:04→21:19)
[2019-03-11] MEDS: *HR* HYDROcodone/Acet 5/325 mg TABLET PO PRN ×2 (11:06→18:04)
--- NOTE | 2019-03-11 11:44 | Neurology Progress Note ---
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 fib on eliquis; concerns for failed therapy given acute infarct in left temporal lobe. Infarcts in the language center without motor deficits are considered embolic until proven otherwise TTE-EF 60% no PFO found but the study was sub-optimal Carotid Duplex scan-bilateral carotid system has nonstenotic plaque Therefore we are recommending HAI and consideration of changing oral anticoagulation management given failed therapy Otherwise c/w ASA and Lipitor C/w neurological assessments and NIHSS per protocol Neurology will continue to follow; further recommendations pending workup Case was discussed with the primary team Subjective Principal diagnosis: CVA left temporal lobe Interval history: The patient is seen in follow-up today for an acute CVA. Initially on presentation she presented with expressive aphasia and confusion and memory loss. MRI of the brain was positive for an acute infarct in the left temporal lobe and correlate with symptoms. Clinically, she is stable overnight without any new neurological concerns or deficits. I discussed with the patient the fact that I feel there is concern that the infarct male event of an embolic etiology. Further, I discussed that there is concerns for an intracardiac thrombotic etiology versus failed therapy with eliquis. As such we are rec ommending HAI and changing her oral anticoagulant to another agent. The patient and family are in agreement and verbalized understanding and denies any further questions. Objective - Constitutional Vitals: Temp Pulse Resp BP Pulse Ox 97.6 F 89 20 114/73 94 03/11/19 11:09 03/11/19 11:09 03/11/19 11:09 03/11/19 11:09 03/11/19 11:09 Exam: General Examination: *CONSTITUTIONAL: Alert and oriented 3, no acute distress *GENERAL APPEARANCE OF PATIENT elderly female who appears healthy and well groomed *EYES: pupils equal, round, reactive to light and accommodation, conjunctiva clear without masses or ulcerations, fundi normal. *CARDIOVASCULAR no peripheral edema, distal temperature normal, dorsalis pedis pulses normal. 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 No abnormal movements, fasciculations or atrophy identified. Neurological: *ORIENTATION to time and place, person and situation *RECURRENT AND REMOTE MEMORY intact *ATTENTION AND CONCENTRATION are normal *LANGUAGE FUNCTION mild expressive dysphasia. No dysarthia was noted. *FUND OF KNOWLEDGE aware of current events, past history, vocabulary *MENTAL attention span and concentration normal. *CN II optic fundi were normal, no papilledema noted. *CN III,IV, PERRLA extraocular eye movements were full, no nystagmus and no ptosis noted. *CN V shows normal sensation and jaw opens symmetrically. *CN VII shows normal facial movement symmetrically, upper and lower bilaterally. *CN VIII shows no significant hearing loss on examination in the office. *CN IX,,X palate elevated symmetrically and normal gag reflex was noted. *CN XI normal strength in the sternocleidomastoid muscles, symmetrical shoulder shrugging. *CN XII tongue protruded in the midline, with normal strength and movement. *SENSORY EXAMINATION pinprick sensation intact, and light touch(vibration sense). *REFLEXES: deep tendon reflexes were normal and symmetrical , grade 1/4 diffusely, no pathological reflexes were noted. *CEREBELLAR TESTING normal finger to nose, heel/knee/cage. *PAIN LEVEL 0/10 Results - Laboratory Findings CBC and BMP: 03/10/19 06:43 03/10/19 06:43 Abnormal lab findings: Abnormal lab results RBC 3.56 M/mcL (3.82-4.97) L 03/10/19 06:43 Hct 33.7 % (35.3-44.9) L 03/10/19 06:43 Plt Count 139 K/mcL (140-400) L 03/10/19 06:43 PT 13.4 Seconds (9.4-12.1) H 03/09/19 14:30 Sodium 134 mEq/L (136-145) L 03/09/19 14:30 BUN 29 mg/dL (8-23) H 03/10/19 06:43 Creatinine 1.35 mg/dL (0.60-1.20) H 03/09/19 14:30 Est GFR ( Amer) 55 (> 60) L 03/10/19 06:43 Est GFR (Non-Af Amer) 45 (> 60) L 03/10/19 06:43 Glucose 108 mg/dL (70-105) H 03/10/19 06:43 POC Glucose 146 mg/dL (70-99) H 03/09/19 13:55 LDL Cholesterol, Calc 103 mg/dL (0-99) H 03/10/19 06:43 Consult Discharge Plan - Plan Referrals: Courtney Cadet, [Primary Care Provider] - (Please call and schedule an appointment within 7-10 days ) <Guevara Mcnulty - Last Filed: 03/11/19 15:56> Date of Encounter: 03/11/19 Assessment and Plan (1) Aphasia Current Visit: Yes Status: Acute I have personally performed a [id number] assessment of the patient and have reviewed the PA/SLIP MAKER note. My impressions are as follows: I agree with the documentation outlined above by the SORORITY MOTHER. I am concerned about a cardioembolic event particularly considering her history of atrial fibrillation. I agree with pressing forward to obtain a HAI. I also agree with considering another anticoagulant she failed on her current regimen. 25 minutes was spent with patient today of which greater than 50% of that time was spent in [id number] contact insisted of neurologic examination, clinical assessment, counseling and coordinating care. Subjective Interval history: The chart was reviewed, patient was seen and examined independently. I agree with the assessment of the history of present illness as outlined above. Patient is much improved today. Her speech is much more fluent. Objective - Constitutional Vitals: Temp Pulse Resp BP Pulse Ox 97.8 F 65 16 126/80 92 03/11/19 15:04 03/11/19 15:04 03/11/19 15:04 03/11/19 15:04 03/11/19 15:04 Exam: I have personally performed a [id number] assessment of the patient and have reviewed the PA/SLIP MAKER note. My impressions are as follows: I agree with the ne urologic examination is documented above. Results - Laboratory Findings CBC and BMP: 03/10/19 06:43 03/10/19 06:43 Abnormal lab findings: Abnormal lab results RBC 3.56 M/mcL (3.82-4.97) L 03/10/19 06:43 Hct 33.7 % (35.3-44.9) L 03/10/19 06:43 Plt Count 139 K/mcL (140-400) L 03/10/19 06:43 PT 13.4 Seconds (9.4-12.1) H 03/09/19 14:30 Sodium 134 mEq/L (136-145) L 03/09/19 14:30 BUN 29 mg/dL (8-23) H 03/10/19 06:43 Creatinine 1.35 mg/dL (0.60-1.20) H 03/09/19 14:30 Est GFR ( Amer) 55 (> 60) L 03/10/19 06:43 Est GFR (Non-Af Amer) 45 (> 60) L 03/10/19 06:43 Glucose 108 mg/dL (70-105) H 03/10/19 06:43 POC Glucose 146 mg/dL (70-99) H 03/09/19 13:55 LDL Cholesterol, Calc 103 mg/dL (0-99) H 03/10/19 06:43
--- NOTE | 2019-03-11 12:53 | Electrocardiograph Report ---
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
[2019-03-11] MEDS: ALPRAZolam 0.5 MG TABLET PO PRN (21:20)
[2019-03-11] MEDS: Acetaminophen 325 MG TABLET PO PRN (21:20)
[2019-03-12] MEDS: *HR* HYDROcodone/Acet 5/325 mg TABLET PO PRN ×2 (00:17→16:19)
[2019-03-12] MEDS: Acetaminophen 325 MG TABLET PO PRN ×2 (04:51→21:30)
[2019-03-12] MEDS: ALPRAZolam 0.5 MG TABLET PO PRN ×2 (04:56→16:19)
[2019-03-12 04:59] LABS: Hematocrit 36.3 % (35.3-44.9); Hemoglobin 12.3 g/dL (11.5-15.4); Mean Corpuscular HGB Conc 33.9 g/dL (31.6-35.5); Mean Corpuscular Hemoglobin 32.3 pg (28.0-33.3); Mean Corpuscular Volume 95.3 fL (83.0-100.0); Mean Platelet Volume 11.2 fL (9.4-12.4); Platelet Count 171 K/mcL (140-400); Red Blood Count 3.81 M/mcL (3.82-4.97); Red Cell Distribution Width 13.7 % (11.5-14.5); White Blood Count 7.2 K/mcL (4.3-11.1)
[2019-03-12 05:14] LABS: Calcium 9.1 mg/dL (8.6-10.3); Potassium 3.7 mEq/L (3.5-5.1)
[2019-03-12] MEDS ORDERED: Lidocaine Viscous Oral Soln 15 ML SOLUTION MM PRN (07:20)
[2019-03-12] MEDS ORDERED: 0.9 % Sodium Chloride 500 ML IVC ONE (07:21)
--- NOTE | 2019-03-12 07:40 | Internal Med Progress Note ---
Hospitalist Progress Note - Encounter Date of Encounter: 03/11/19 Time of Encounter: 07:37 - Subjective Interval History: Patient seen and examined in the room. She reported resolved aphasia, reported absence of headache, seizure activity, weakness, or numbness. - Exam Vitals: Temp Pulse Resp BP Pulse Ox 97.6 F 63 17 106/59 99 03/12/19 06:51 03/12/19 06:51 03/12/19 06:51 03/12/19 06:51 03/12/19 06:51 Exam: Skin: Free of rash and discoloration. Eyes: Sclera is white. There is no discharge from eyes. ENMT: Oral/pharyngeal mucosa is normal in appearance. There is no discharge from nose or ears. Respiratory: Normal breath sounds with no crackles and wheezes bilaterally. CV: Heart is regular with no gallop or murmur. GI: Abdomen is flat and soft with no palpable mass or visceromegaly. : There is no tenderness in patient's flanks bilaterally. Neuro exam: He has good strength in upper and lower extremities. He has normal eye movements. Psychiatric: He has normal affect. His thought process is appropriate to the situation. . - Assessment and Plan (1) Acute CVA (cerebrovascular accident) Current Visit: Yes Status: Acute Assessment and Plan: MRI of brain showed acute CVA involving the left temporal lobe, adjacent to [place] language area. Patient does have risk factors for stroke including chronic atrial fibrillation, hypertension, hyperlipidemia, and diabetes. She currently takes Eliquis for stroke as well as aspirin. CTA and aquatic Doppler has no acute thrombosis or critical stenosis. We will continue aggressive risk factor modification/reduction, we will increase dose of statin to high-strength, repeat A1c, more optimal blood pressure control, possible switch Eliquis to Coumadin pending discussion with patient about risk and benefits of doing so. Continue monitoring, pending TTE. Neuro following, appreciate help. (2) Aphasia Current Visit: Yes Status: Acute Assessment and Plan: Patient presented after sudden onset of aphasia. Initially she was unable to speak now she can answer with broken sentences. Patient states that this happened before approximately September at that time the symptoms lasted an hour and then resolved. She does have a history of atrial fibrillation also states that she has a PFO currently on anticoagulation. She was given aspirin in the ER which we will continue We will obtain cardiac echo Continuous cardiac monitoring NIHSS We will consult neurology Lipid profile Continuous statin We will obtain MRI-patient has Medtronic pacemaker we will contact [employer] 03/10 Speech is more fluid at this time Continuous cardiac monitoring EKG with atrial paced rhythm Neurology has been consulted appreciate recommendations Aspirin and statin A stat MRI today at 1:00 Carotid duplex and echo are pending at this time 03/11 same as above. (3) Hypertension Current Visit: No Status: Chronic Assessment and Plan: Continue with home medications. (4) Atrial fibrillation Current Visit: No Status: Chronic Assessment and Plan: History of atrial fibrillation currently atrial paced paced-rate controlled we will continue with Eliquis Rythmol and digoxin once clarified 03/10 History of atrial fibrillation with pacemaker placement-occasions have been clarified continue with home Eliquis as well as metoprolol. 03/11 Management the same as above. (5) NADEGE (acute kidney injury) Current Visit: Yes Status: Acute Assessment and Plan: Patient's creatinine is elevated at 1.35 looks at her baseline is around 1 to less than 1-GFR is 39. She is around 50 to greater than 60 baseline We will give some gentle IV fluids Recheck creatinine in the a.m. Avoid nephrotoxins 03/10 This has improved after receiving IV fluids we will avoid nephrotoxins continue to monitor. 03/11 Same as above. (6) DVT prophylaxis Current Visit: Yes Status: Acute Assessment and Plan: on Eliquis - Time Spent with Patient Total time spent is greater than 50% in coordination of care (as documented) at patient's floor/unit and/or counseling patient: Greater than 35 minutes Plan of Care Discussed with: patient Internal Medicine: Result - Labs CBC & Chem 7: 03/12/19 04:25 03/12/19 04:25 Labs: Short CBC 03/12/19 Range/Units 04:25 WBC 7.2 (4.3-11.1) K/mcL Hgb 12.3 (11.5-15.4) g/dL Hct 36.3 (35.3-44.9) % Plt Count 171 (140-400) K/mcL BMP 03/12/19 04:25 Sodium 138 Potassium 3.7 Chloride 105 Carbon Dioxide 26 BUN 27 H Creatinine 1.27 H Glucose 111 H Calcium 9.1 - ABG Interpretation ABG results: PT/INR, D-dimer PT 13.4 Seconds (9.4-12.1) H 03/09/19 14:30 Consult Discharge Plan - Plan Referrals: Courtney Cadet DO [Primary Care Provider] - (Please call and schedule an appointment within 7-10 days ) (3) Hypertension Qualifiers: Hypertension type: essential hypertension Qualified Code(s): I10 - Essential (primary) hypertension (4) Atrial fibrillation Qualifiers: Atrial fibrillation type: chronic Qualified Code(s): I48.2 - Chronic atrial fibrillation
[2019-03-12] MEDS: *HR* Midazolam HCl 5 MG/5 ML VIAL IVP PRN ×2 (08:05→08:10)
[2019-03-12] MEDS: *HR* FentaNYL (PF) 100 MCG/2 ML VIAL IVP PRN ×2 (08:05→08:15)
--- NOTE | 2019-03-12 11:00 | Physician Discharge Referral ---
Home Health/Hosp Referral Info Transfer to: Home Health Provider in Charge Post Discharge: PCP - Diagnosis (1) Acute CVA (cerebrovascular accident) Priority: Primary Status: Acute (2) Aphasia Priority: Primary Status: Acute (3) Hypertension Priority: Secondary Status: Chronic (4) Atrial fibrillation Priority: Secondary Status: Chronic (5) NADEGE (acute kidney injury) Priority: Secondary Status: Acute (6) DVT prophylaxis Priority: Primary Status: Acute - Respiratory Orders Smoking Cessation: Smoking cessation has been advised. For more information, call the [place] Tobacco Quit Line at 4-354-LLCX-NOW. - Services Needed Following services are medically necessary services: Nursing, Home Health Aide, Physical Therapy, Occupational Therapy - Transfer Medications Home Medications: Apixaban [Eliquis] 5 mg PO BID 10/06/17 [History] Methyl Salicylate/Menth/Camph [[place] Ultra Strength Cream] 113 gm TP BID 365 Days cream..g. 10/25/17 [Rx] Acetaminophen [Extra Strength Non-Aspirin] 500 mg PO Q4H PRN 11/09/17 [History] Alendronate Sodium 70 mg PO QWEEK 03/10/19 [History] Allopurinol [Zyloprim 100 MG] 100 mg PO DAILY 03/10/19 [History] Buspirone HCl [Buspar] 7.5 mg PO BID 03/10/19 [History] Cyclobenzaprine [Flexeril] 10 mg PO TID 03/10/19 [History] Dicyclomine [Bentyl] 10 mg PO QID 03/10/19 [History] Furosemide [Lasix] 40 mg PO DAILY 03/10/19 [History] Gabapentin [Neurontin] 100 mg PO BID 03/10/19 [History] HYDROcodone/Acet 7.5/325 mg [[place] 7.5-325 mg] 1 tab PO Q6H PRN 03/10/19 [History] Isosorbide MONOnitrate [Isosorbide Mononitrate ER] 30 mg PO DAILY 03/10/19 [History] Loratadine [Claritin] 10 mg PO DAILY PRN 03/10/19 [History] Metoprolol Tartrate 50 mg PO BID 03/10/19 [History] Potassium Chloride 20 meq PO BID 03/10/19 [History] hydrALAZINE [HydrALAZINE] 10 mg PO BID 03/10/19 [History] Allergies/Adverse Reactions: Allergy/AdvReac Type Severity Reaction Status Date / Time No Known Allergies Allergy Verified 03/09/19 16:32 Certification: Further, I certify that my clinical findings support that this patient is homebound (i.e. absences from home require considerable and taxing effort and are for medical reasons or [employer] services or infrequently or short duration when for other reasons) because: Homebound Reason: Patient requires assistance of a person or device to safely leave home Attestation: My signature below is to certify that this patient is under my care and that I, or nurse practitioner, or a physician's critical care physician assistant working with me, has a kymw-[id number] encounter with this patient.
[2019-03-12] MEDS: Apixaban 5 MG TABLET PO SCH ×2 (11:23→21:29)
[2019-03-12] MEDS: Aspirin 81 MG TAB.CHEW PO SCH (11:23)
[2019-03-12] MEDS: Isosorbide MONOnitrate (24 HR) 30 MG TAB.ER.24H PO SCH (11:23)
[2019-03-12] MEDS: hydrALAZINE 10 MG TABLET PO SCH ×2 (11:23→21:29)
[2019-03-12] MEDS: Furosemide 40 MG TABLET PO SCH (11:23)
[2019-03-12] MEDS: Gabapentin 100 MG CAPSULE PO SCH ×2 (11:23→21:29)
--- NOTE | 2019-03-12 12:06 | Electrocardiograph Report ---
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
--- NOTE | 2019-03-12 12:47 | Internal Med Progress Note ---
Hospitalist Progress Note - Encounter Date of Encounter: 03/12/19 Time of Encounter: 12:35 - Subjective Interval History: Patient seen and examined in the room. She reported improvement in speech and denies headache, weakness, or numbness. - Exam Vitals: Temp Pulse Resp BP Pulse Ox 97.5 F L 60 16 108/63 98 03/12/19 10:59 03/12/19 10:59 03/12/19 10:59 03/12/19 10:59 03/12/19 10:59 Exam: Skin: Free of rash and discoloration. Eyes: Sclera is white. There is no discharge from eyes. ENMT: Oral/pharyngeal mucosa is normal in appearance. There is no discharge from nose or ears. Respiratory: Normal breath sounds with no crackles and wheezes bilaterally. CV: Heart is regular with no gallop or murmur. GI: Abdomen is flat and soft with no palpable mass or visceromegaly. : There is no tenderness in patient's flanks bilaterally. Neuro exam: He has good strength in upper and lower extremities. He has normal eye movements. Psychiatric: He has normal affect. His thought process is appropriate to the situation. . - Assessment and Plan (1) Acute CVA (cerebrovascular accident) Current Visit: Yes Status: Acute Assessment and Plan: 03/11 MRI of brain showed acute CVA involving the left temporal lobe, adjacent to [place] language area. Patient does have risk factors for stroke including chronic atrial fibrillation, hypertension, hyperlipidemia, and diabetes. She currently takes Eliquis for stroke as well as aspirin. CTA and aquatic Doppler has no acute thrombosis or critical sTEEtenosis. We will continue aggressive risk factor modification/reduction, we will increase dose of statin to high-strength, repeat A1c, more optimal blood pressure control, possible switch Eliquis to Coumadin pending discussion with patient abo ut risk and benefits of doing so. Continue monitoring, pending HAI. Neuro following, appreciate help. 03/12 HAI showed PFO, enlarged PA and thoracic aortic aneurysm. Discussed with family with treatment plan including switch Eliquis to coumadin. They are currently debating. I also discussed the treatment plan for PFO and will refer her to [facility] for further treatment. Neuro following. (2) Aphasia Current Visit: Yes Status: Acute Assessment and Plan: Patient presented after sudden onset of aphasia. Initially she was unable to speak now she can answer with broken sentences. Patient states that this h appened before approximately September at that time the symptoms lasted an hour and then resolved. She does have a history of atrial fibrillation also states that she has a PFO currently on anticoagulation. She was given aspirin in the ER which we will continue We will obtain cardiac echo Continuous cardiac monitoring NIHSS We will consult neurology Lipid profile Continuous statin We will obtain MRI-patient has Medtronic pacemaker we will contact [employer] 03/10 Speech is more fluid at this time Continuous cardiac monitoring EKG with atrial paced rhythm Neurology has been consulted appreciate recommendations Aspirin and statin A stat MRI today at 1:00 Carotid duplex and echo are pending at this time 03/11 same as above. 03/12 same as above. (3) Hypertension Current Visit: No Status: Chronic Assessment and Plan: Continue with home medications. (4) Atrial fibrillation Current Visit: No Status: Chronic Assessment and Plan: History of atrial fibrillation currently atrial paced paced-rate controlled we will continue with Eliquis Rythmol and digoxin once clarified 03/10 History of atrial fibrillation with pacemaker placement-occasions have been clarified continue with home Eliquis as well as metoprolol. 03/11 Management the same as above. (5) NADEGE (acute kidney injury) Current Visit: Yes Status: Acute Assessment and Plan: Patient's creatinine is elevated at 1.35 looks at her baseline is around 1 to less than 1-GFR is 39. She is around 50 to greater than 60 baseline We will give some gentle IV fluids Recheck creatinine in the a.m. Avoid nephrotoxins 03/10 This has improved after receiving IV fluids we will avoid nephrotoxins continue to monitor. 03/11 Same as above. 03/12 Cr 1.27, continue monitoring. (6) Thoracic aortic aneurysm Current Visit: No Status: Chronic Assessment and Plan: F/u with cardiology at outside hospital. (7) PFO (patent foramen ovale) Current Visit: Yes Status: Acute Assessment and Plan: outline as above. (8) DVT prophylaxis Current Visit: Yes Status: Acute - Time Spent with Patient Total time spent is greater than 50% in coordination of care (as documented) at patient's floor/unit and/or counseling patient: Greater than 35 minutes Plan of Care Discussed with: patient Internal Medicine: Result - Labs CBC & Chem 7: 03/12/19 04:25 03/12/19 04:25 Labs: Short CBC 03/12/19 Range/Units 04:25 WBC 7.2 (4.3-11.1) K/mcL Hgb 12.3 (11.5-15.4) g/dL Hct 36.3 (35.3-44.9) % Plt Count 171 (140-400) K/mcL BMP 03/12/19 04:25 Sodium 138 Potassium 3.7 Chloride 105 Carbon Dioxide 26 BUN 27 H Creatinine 1.27 H Glucose 111 H Calcium 9.1 - ABG Interpretation ABG results: PT/INR, D-dimer PT 13.4 Seconds (9.4-12.1) H 03/09/19 14:30 Consult Discharge Plan - Plan Referrals: Courtney Cadet DO [Primary Care Provider] - 03/16/19 3:30 pm ( ) (3) Hypertension Qualifiers: Hypertension type: essential hypertension Qualified Code(s): I10 - Essential (primary) hypertension (4) Atrial fibrillation Qualifiers: Atrial fibrillation type: chronic Qualified Code(s): I48.2 - Chronic atrial fibrillation (6) Thoracic aortic aneurysm Qualifiers: Presence of rupture: without rupture Qualified Code(s): I71.2 - Thoracic aortic aneurysm, without rupture
--- NOTE | 2019-03-12 13:30 | Neurology Progress Note ---
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 fib with failed eliquis therapy HAI with a new diagnosis of PFO High risk for recurrent CVA Findings discussed with the family and recommendations are to change oral anticoagulant from eliquis to another oral anticoagulant Family are discussing recommendations at this time; further, they are discussing whether or not to seek a second opinion at [facility] regarding PFO closure and/or anticoagulation In the meantime continue with neurological assessments per protocol Continue Lipitor and eliquis infertility determine whether or not they wish to change oral anticoagulation in the setting of failed therapy neurology will follow peripherally; please call should any urgent needs arise Subjective Principal diagnosis: CVA left temporal lobe Interval history: Seen in follow-up for an acute CVA involving the left temporal lobe. Today she is A&OX3 without any further complication overnight. A HAI was completed finding a PFO. Findings have been discussed with the patient and family and recommendations have been made to switch oral anticoagulant to coumadin. The family is evaluating whether or not to get a second opinion for PFO treatment at [facility]. Objective - Constitutional Vitals: Temp Pulse Resp BP Pulse Ox 97.5 F L 60 16 108/63 98 03/12/19 10:59 03/12/19 10:59 03/12/19 10:59 03/12/19 10:59 03/12/19 10:59 Exam: General Examination: *CONSTITUTIONAL: Alert and oriented 3, no acute distress *GENERAL APPEARANCE OF PATIENT elderly female who appears healthy and well groomed *EYES: pupils equal, round, reactive to light and accommodation, conjunctiva clear without masses or ulcerations, fundi normal. *CARDIOVASCULAR no peripheral edema, distal temperature normal, dorsalis pedis pulses normal. 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 No abnormal movements, fasciculations or atrophy identified. Neurological: *ORIENTATION to time and place, person and situation *RECURRENT AND REMOTE MEMORY intact *ATTENTION AND CONCENTRATION are normal *LANGUAGE FUNCTION mild expressive dysphasia. No dysarthia was noted. No prominent speech or language dysfunction *FUND OF KNOWLEDGE aware of current events, past history, vocabulary *MENTAL attention span and concentration normal. *CN II optic fundi were normal, no papilledema noted. *CN III,IV, PERRLA extraocular eye movements were full, no nystagmus and no ptosis noted. *CN V shows normal sensation and jaw opens symmetrically. *CN VII shows normal facial movement symmetrically, upper and lower bilaterally. *CN VIII shows no significant hearing loss on examination in the office. *CN IX,,X palate elevated symmetrically and normal gag reflex was noted. *CN XI normal strength in the sternocleidomastoid muscles, symmetrical shoulder shrugging. *CN XII tongue protruded in the midline, with normal strength and movement. *SENSORY EXAMINATION pinprick sensation intact, and light touch(vibration sense). *REFLEXES: deep tendon reflexes were normal and symmetrical , grade 1/4 diffusely, no pathological reflexes were noted. *CEREBELLAR TESTING normal finger to nose, heel/knee/cage. *PAIN LEVEL 0/10 Results - Laboratory Findings CBC and BMP: 03/12/19 04:25 03/12/19 04:25 Abnormal lab findings: Abnormal lab results RBC 3.81 M/mcL (3.82-4.97) L 03/12/19 04:25 Hct 33.7 % (35.3-44.9) L 03/10/19 06:43 Plt Count 139 K/mcL (140-400) L 03/10/19 06:43 PT 13.4 Seconds (9.4-12.1) H 03/09/19 14:30 Sodium 134 mEq/L (136-145) L 03/09/19 14:30 BUN 27 mg/dL (8-23) H 03/12/19 04:25 Creatinine 1.27 mg/dL (0.60-1.20) H 03/12/19 04:25 Est GFR ( Amer) 51 (> 60) L 03/12/19 04:25 Est GFR (Non-Af Amer) 42 (> 60) L 03/12/19 04:25 Glucose 111 mg/dL (70-105) H 03/12/19 04:25 POC Glucose 146 mg/dL (70-99) H 03/09/19 13:55 LDL Cholesterol, Calc 103 mg/dL (0-99) H 03/10/19 06:43 Consult Discharge Plan - Plan Referrals: Courtney Cadet DO [Primary Care Provider] - 03/16/19 3:30 pm ( ) <Guevara Mcnulty - Last Filed: 03/12/19 17:30> Date of Encounter: 03/12/19 Assessment and Plan (1) Aphasia Current Visit: Yes Status: Acute I have personally performed a [id number] assessment of the patient and have reviewed the PA/ASSESSMENT MANAGER note. My impressions are as follows: Case was discussed with the DIRECTOR AGRICULTURAL SERVICES, I agree with his assessment and plan as stated above. I highly recommend choosing an alternate anticoagulant strategy, I also favor closing the PFO. Recommend cardiology evaluation for such. Otherwise maintain her stroke prevention regimen and aggressive management of other stroke risk factors. I will reevaluate her at your request. Subjective Interval history: Chart was reviewed, patient was seen and examined. Case was discussed with the DIRECTOR AGRICULTURAL SERVICES. I agree with his assessment of the history of present illness as do cumented above. Objective - Constitutional Vitals: Temp Pulse Resp BP Pulse Ox 98.0 F 67 16 137/84 95 03/12/19 16:11 03/12/19 16:11 03/12/19 16:11 03/12/19 16:11 03/12/19 16:11 Exam: I have personally performed a [id number] assessment of the patient and have reviewed the PA/ASSESSMENT MANAGER note. My impressions are as follows: I agree with the documentation of the neurologic exam is still above. Results - Laboratory Findings CBC and BMP: 03/12/19 04:25 03/12/19 04:25 Abnormal lab findings: Abnormal lab results RBC 3.81 M/mcL (3.82-4.97) L 03/12/19 04:25 Hct 33.7 % (35.3-44.9) L 03/10/19 06:43 Plt Count 139 K/mcL (140-400) L 03/10/19 06:43 PT 13.4 Seconds (9.4-12.1) H 03/09/19 14:30 Sodium 134 mEq/L (136-145) L 03/09/19 14:30 BUN 27 mg/dL (8-23) H 03/12/19 04:25 Creatinine 1.27 mg/dL (0.60-1.20) H 03/12/19 04:25 Est GFR ( Amer) 51 (> 60) L 03/12/19 04:25 Est GFR (Non-Af Amer) 42 (> 60) L 03/12/19 04:25 Glucose 111 mg/dL (70-105) H 03/12/19 04:25 POC Glucose 146 mg/dL (70-99) H 03/09/19 13:55 LDL Cholesterol, Calc 103 mg/dL (0-99) H 03/10/19 06:43
[2019-03-13] MEDS: *HR* HYDROcodone/Acet 5/325 mg TABLET PO PRN ×2 (00:36→08:04)
[2019-03-13] MEDS: ALPRAZolam 0.5 MG TABLET PO PRN (00:36)
[2019-03-13 01:59] LABS: Hematocrit 35.5 % (35.3-44.9); Mean Corpuscular HGB Conc 33.8 g/dL (31.6-35.5); Mean Corpuscular Hemoglobin 32.7 pg (28.0-33.3); Mean Corpuscular Volume 96.7 fL (83.0-100.0); Platelet Count 166 K/mcL (140-400); Red Blood Count 3.67 M/mcL (3.82-4.97); Red Cell Distribution Width 13.6 % (11.5-14.5); White Blood Count 6.4 K/mcL (4.3-11.1)
[2019-03-13 02:28] LABS: Potassium 3.9 mEq/L (3.5-5.1)
[2019-03-13 07:27] VITALS: BP 147/87
[2019-03-13] MEDS: Aspirin 81 MG TAB.CHEW PO SCH (08:03)
[2019-03-13] MEDS: hydrALAZINE 10 MG TABLET PO SCH (08:04)
[2019-03-13] MEDS: Apixaban 5 MG TABLET PO SCH (08:04)
[2019-03-13] MEDS: Gabapentin 100 MG CAPSULE PO SCH (08:04)
[2019-03-13] MEDS: Isosorbide MONOnitrate (24 HR) 30 MG TAB.ER.24H PO SCH (08:04)
[2019-03-13] MEDS ORDERED: Furosemide 20 MG TABLET PO SCH (09:00)
--- NOTE | 2019-03-13 09:21 | Discharge Summary ---
- NOTES TO OUTPATIENT PROVIDER Notes to Outpatient Provider: f/u with PCP within 2 weeks. f/u with Neurology within a month. f/u with cardiology as scheduled ( Pt already had an appointment). Date of Encounter: 03/13/19 Time of Encounter: 09:16 - Discharge Diagnosis (1) Acute CVA (cerebrovascular accident) Priority: Primary Status: Acute (2) Aphasia Priority: Primary Status: Acute (3) Hypertension Priority: Secondary Status: Chronic Qualifiers: Hypertension type: essential hypertension Qualified Code(s): I10 - Essential (primary) hypertension (4) Atrial fibrillation Priority: Secondary Status: Chronic Qualifiers: Atrial fibrillation type: chronic Qualified Code(s): I48.2 - Chronic atrial fibrillation (5) NADEGE (acute kidney injury) Priority: Primary Status: Acute (6) Thoracic aortic aneurysm Priority: Primary Status: Chronic Qualifiers: Presence of rupture: without rupture Qualified Code(s): I71.2 - Thoracic aortic aneurysm, without rupture (7) PFO (patent foramen ovale) Priority: Primary Status: Acute (8) DVT prophylaxis Priority: Primary Status: Acute Hospital course: Ms. Willis is a 68 year old female with medical history of atrial fibrillation on Eliquis, GIOVANNA on CPAP, chronic back pain, hyperlipidemia, hypertension, previous TIA, GERD, pacemaker placement-information obtained from was at bedside due to patient's difficulty speaking. per they were at [place] patient was in the car that he was pumping gas that has been asked the patient questions however she was unable to answer back. He states that she did not lose any consciousness there was no facial droop. Apparently she did have TIA symptoms back in September and was diagnosed with atrial fibrillation was placed on Eliquis-she apparently has a PFO as well-she was brought to [place] [facility]. CT of head was performed which was unremarkable, as was CTA head and neck, [facility] stroke center was consulted and patient was not a candidate for TPA. MRI of brain was performed which revealed acute infarct involving left temporal lobe adjacent to [place] language area. Neurology was consulted. Trans-esophageal echocardiogram was performed which revealed presence of PFO, ascending aortic aneurysm, and the enlarged size of pulmonary artery. Aspirin was started, stroke originated from embolism was suspected by neurology, since patient failed the treatment with Eliquis, recommendation was made to switch to Coumadin. Risk assessment and benefits about Coumadin were discussed with patient and family. They decided not to change at this point until patient is seen and the evaluated by PCP and cardiology. Patient aphasia has significantly improved after admission. PT/OT recommended home health care. Patient is discharged home today. She will follow up with cardiology about the treatment for PFO and the thoracic aortic aneurysm. She will see PCP and neurology as scheduled. Discharge discussed with: patient Time spent discussing smoking cessation with patient: more than 10 minutes - Time Spent with Patient Total time spent providing and/or coordinating discharge services: Time spent: Greater than 30 minutes - Discharge Medications Prescriptions: New Atorvastatin [Lipitor] 80 mg PO HS #30 tablet Aspirin 81 mg PO DAILY #30 tab.chew Continued Buspirone HCl [Buspar] 7.5 mg PO BID hydrALAZINE [HydrALAZINE] 10 mg PO BID Isosorbide MONOnitrate [Isosorbide Mononitrate ER] 30 mg PO DAILY Allopurinol [Zyloprim 100 MG] 100 mg PO DAILY Dicyclomine [Bentyl] 10 mg PO QID Alendronate Sodium 70 mg PO QWEEK Metoprolol Tartrate 50 mg PO BID Gabapentin [Neurontin] 100 mg PO BID Cyclobenzaprine [Flexeril] 10 mg PO TID Furosemide [Lasix] 40 mg PO DAILY HYDROcodone/Acet 7.5/325 mg [Mears 7.5-325 mg] 1 tab PO Q6H PRN PRN Reason: Pain Loratadine [Claritin] 10 mg PO DAILY PRN PRN Reason: Allergy Symptoms Potassium Chloride 20 meq PO BID Apixaban [Eliquis] 5 mg PO BID Methyl Salicylate/Menth/Camph [Bengay Ultra Strength Cream] 113 gm TP BID 365 Days cream..g. Acetaminophen [Extra Strength Non-Aspirin] 500 mg PO Q4H PRN PRN Reason: Pain Home Medications: Apixaban [Eliquis] 5 mg PO BID 10/06/17 [History] Methyl Salicylate/Menth/Camph [Bengay Ultra Strength Cream] 113 gm TP BID 365 Days cream..g. 10/25/17 [Rx] Acetaminophen [Extra Strength Non-Aspirin] 500 mg PO Q4H PRN 11/09/17 [History] Alendronate Sodium 70 mg PO QWEEK 03/10/19 [History] Allopurinol [Zyloprim 100 MG] 100 mg PO DAILY 03/10/19 [History] Buspirone HCl [Buspar] 7.5 mg PO BID 03/10/19 [History] Cyclobenzaprine [Flexeril] 10 mg PO TID 03/10/19 [History] Dicyclomine [Bentyl] 10 mg PO QID 03/10/19 [History] Furosemide [Lasix] 40 mg PO DAILY 03/10/19 [History] Gabapentin [Neurontin] 100 mg PO BID 03/10/19 [History] HYDROcodone/Acet 7.5/325 mg [Mears 7.5-325 mg] 1 tab PO Q6H PRN 03/10/19 [History] Isosorbide MONOnitrate [Isosorbide Mononitrate ER] 30 mg PO DAILY 03/10/19 [History] Loratadine [Claritin] 10 mg PO DAILY PRN 03/10/19 [History] Metoprolol Tartrate 50 mg PO BID 03/10/19 [History] Potassium Chloride 20 meq PO BID 03/10/19 [History] hydrALAZINE [HydrALAZINE] 10 mg PO BID 03/10/19 [History] Aspirin 81 mg PO DAILY #30 tab.chew 03/13/19 [Rx] Atorvastatin [Lipitor] 80 mg PO HS #30 tablet 03/13/19 [Rx] Allergies/Adverse Reactions: Allergy/AdvReac Type Severity Reaction Status Date / Time No Known Allergies Allergy Verified 03/09/19 16:32 Date of admission: 03/11/19 15:17 Primary care physician: Courtney Cadet Consults: 03/09/19 17:28 Consult to Neurology [CONS] Routine Consulting Provider: Neurology [facility] Reason for Consult: Aphasia Time Notified: 17:28 Call Completed: Yes 03/10/19 11:38 Consult to Physical Therapy [CONS] Routine Comment: Evaluate, develop and implement POC Reason for Consult: CVA Does patient have active BEDREST order?: No Is patient medically & hemodynamically stable?: Yes Patient assessed for mobility or mobilized this visit?: Yes Anticipated date of discharge: 03/13/19 - Constitutional Vitals: Temp Pulse Resp BP Pulse Ox 97.6 F 65 19 147/87 98 03/13/19 07:19 03/13/19 07:19 03/13/19 07:19 03/13/19 07:19 03/13/19 07:19 General appearance: Present: A&O X 3, morbidly obese Exam: Skin: Free of rash and discoloration. Eyes: Sclera is white. There is no discharge from eyes. ENMT: Oral/pharyngeal mucosa is normal in appearance. There is no discharge from nose or ears. Respiratory: Normal breath sounds with no crackles and wheezes bilaterally. CV: Heart is regular with no gallop or murmur. GI: Abdomen is flat and soft with no palpable mass or visceromegaly. : There is no tenderness in patient's flanks bilaterally. Neuro exam: He has good strength in upper and lower extremities. He has normal eye movements. Psychiatric: He has normal affect. His thought process is appropriate to the situation. . - Patient Status Disposition: Home Health Service Condition: Fair Functional capacity at discharge: independent ambulation Overall status at discharge: patient is progressing back to baseline - Discharge Instructions Follow Up With: Courtney Cadet DO [Primary Care Provider] - 03/16/19 3:30 pm ( ) - Diet and Activity Activity: increase activity as tolerated Diet: low fat, low cholesterol, low salt diet
== END 2019-03-13 11:42 | disposition home health service (06) | DRG 65 ==
LOC: EMEROOARM 13:49 → 3BNU 13:49
PROVIDERS: ADMIT Student in an Organized Health Care Education/Training Program; ATTEND Student in an Organized Health Care Education/Training Program